=== PATIENT | female | born 1955 | race Caucasian/White ===

== ENCOUNTER → 2018-10-10 | Outpatient (CLI) | payer OTHER ==
[~2018-10-10] MED LIST: GADOBENATE DIMEGLUMINE 1 ML IV ONE
[2018-10-10 09:53] LABS: BLOOD UREA NITROGEN 14 mg/dL (7-26); BUN/CREATININE RATIO 18 (6-25); CREATININE, SERUM 0.79 mg/dL (0.57-1.11); EST GLOMERULAR FILTRATION RATE > 60 ML/MIN (60-)
--- NOTE | 2018-10-10 11:17 | Diagnostic Imaging Report ---
TECHNIQUE: Magnetic resonance imaging of the right hand was performed without and with injected contrast. 10 mL of MultiHance. HISTORY: Pain COMPARISON: None. FINDINGS: Involving the distal phalanx of the small finger a 4 mm hyperintense lesion which causes cortical erosion. Hyperintense on fluid sensitive, isointense to muscle on T1, and shows enhancement. Remainder of the bone marrow and soft tissues are unremarkable. Flexor and extensor tendons are intact. IMPRESSION: 4 mm enhancing nodule involving the distal phalanx of the small finger. May reflect glomus tumor versus epidermoid. Signed by: Dr. Johnny Car M.D. on 10/10/2018 11:14 AM
== END ==
LOC: MRI 08:48
PROVIDERS: ATTEND Plastic Surgery
DX: M79.644 Pain in right finger(s) (principal); R22.31 Localized swelling, mass and lump, right upper limb
CPT/HCPCS: 36415; 73220; 82565; 84520; A9577

== ENCOUNTER → 2018-10-25 | Day surgery (SDC) | payer OTHER ==
[2018-10-19 17:10] LABS: BASOPHILS % 1.1 % (0.0-1.0); EOSINOPHILS # (AUTO) 0.1 (0.0-0.4); EOSINOPHILS % 3.5 % (0.0-6.0); HEMATOCRIT 35.8 % (34.2-44.1); HEMOGLOBIN 11.9 g/dL (12.0-16.0); LYMPHOCYTES # (AUTO) 1.4 (1.0-3.2); MEAN CORPUSCULAR HEMOGLOBIN 28.7 pg (28-32); MEAN CORPUSCULAR HGB CONC 33.2 g/dL (31-35); MEAN CORPUSCULAR VOLUME 86.5 fL (81-99); MONOCYTES # (AUTO) 0.4 (0.2-0.8); MONOCYTES % 11.2 % (4.4-11.3); NEUTROPHILS # (AUTO) 1.7 (2.1-6.9); NEUTROPHILS % 46.2 % (38.7-80.0); PLATELET COUNT 210 x10e3/uL (140-360); RED BLOOD COUNT 4.14 x10e6/uL (3.6-5.1); RED CELL DISTRIBUTION WIDTH 12.9 % (11.7-14.4)
[2018-10-19 17:22] LABS: INR 0.92; PARTIAL THROMBOPLASTIN TIME 32.9 seconds (23.8-35.5); PROTHROMBIN TIME 12.9 seconds (11.9-14.5)
[2018-10-19 17:29] LABS: ALANINE AMINOTRANSFERASE 10 IU/L (0-55); ALBUMIN 4.4 g/dL (3.5-5.0); ALBUMIN/GLOBULIN RATIO 1.6 (0.8-2.0); ALKALINE PHOSPHATASE 37 IU/L (40-150); ANION GAP 12.4 mmol/L (8-16); BLOOD UREA NITROGEN 14 mg/dL (7-26); BUN/CREATININE RATIO 18 (6-25); CALCIUM 9.8 mg/dL (8.4-10.2); CARBON DIOXIDE 24 mmol/L (22-29); CHLORIDE 103 mmol/L (98-107); CREATININE, SERUM 0.78 mg/dL (0.57-1.11); EST GLOMERULAR FILTRATION RATE > 60 ML/MIN (60-); GLUCOSE 81 mg/dL (74-118); POTASSIUM 3.4 mmol/L (3.5-5.1); SODIUM 136 mmol/L (136-145)
[~2018-10-25] MED LIST changes: +BUPIVACAINE HCL 0.5% INJ 30 ML VIAL INJ ONE; +DEXAMETHASONE SOD PHOS INJ 4 MG/ML VIAL ONE; +FENTANYL CITRATE/PF 100MCG/2 ML INJ ONE; -GADOBENATE DIMEGLUMINE 1 ML IV ONE; +KETOROLAC TROMETHAMINE 30 MG/ML VIAL ONE; +LEVOXYL25 MCG PO; +LIDOCAINE HCL 2% LOCAL INJ 5 ML SDV VIAL INJ ONE; +MIDAZOLAM HCL 2 MG/2 ML VIAL ONE; +MUPIROCIN 2% OINT 22 GM TUBE ONE; +ONDANSETRON HCL INJ 2MG/ML 2ML 2 MG/ML VIAL ONE; +PROPOFOL IV EMULSION 10 MG/ML 20 ML VIAL ONE; +SEVOFLURANE INHAL SOLN 250 ML PEN BTL ONE; +[UNRECOGNIZED DRUG - OTHER] PO
--- OUTSIDE RECORDS SUMMARY | 2018-10-25 06:01 | XMS REPORT ---
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
--- OUTSIDE RECORDS SUMMARY | 2018-10-25 06:01 | XMS REPORT ---
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 Problem Hypothyroidism E03.9 Active Problem Age-related osteoporosis without current pathological fracture M81.0 Active Assessment Encounter for immunization Z23 Active Assessment Encounter for screening mammogram for malignant neoplasm of breast Z12.31 Active Problem Chronic hepatitis C without hepatic coma B18.2 Active Assessment Encounter for general adult medical examination without abnormal findings Z00.00 Active Assessment Adult BMI <19 kg/sq m Z68.1 Active Assessment Pneumococcal vaccination declined Z28.21 Active Assessment Influenza vaccination declined Z28.21 Active Medications Medication Code System Code Instructions Start Date End Date Status Dosage Fosamax [facility] 81382702677 70 mg orally once a week Active 1 tab(s) Levoxyl [facility] 70855127741 25 mcg (0.025 mg) orally once a day Active 1 tab(s) Vital Signs Date/Time: Jan 29, 2018 Height 65 in Temperature 97.6 F Pulse 63 /min BMI 17.80 Index Weight 107 lbs Results No Known Results Summary Purpose [employer] Submission
--- OUTSIDE RECORDS SUMMARY | 2018-10-25 06:01 | XMS REPORT | Continuity of Care Document ---
Author Author [employer] Address Unknown Phone Unavailable Care Team Providers Care Wine Master Name Role Phone [employer] Information SEA Unavailable Unavailable Problems Problem Status Onset Date Classification Date Reported Comments Source Chronic hepatitis C without hepatic coma Active Problem 09/13/2018 Valentin Marisa residential current use of therapeutic drug Active Problem 09/13/2018 Valentin Marisa Strabismus Active Problem 09/13/2018 Valentin Marisa Vasculitis Active Problem 09/13/2018 Valentin Marisa Congenital cataract of left eye Active Problem 09/13/2018 Valentin Marisa Hypothyroidism Active Problem 09/13/2018 Valentin Marisa Hypercalcemia Active Problem 09/13/2018 Valentin Marisa Age-related osteoporosis without current pathological fracture Active Problem 09/13/2018 Valentin Marisa Body mass index 19 or less, adult Active Diagnosis 06/11/2017 Valentin Marisa Urine findings abnormal Active Diagnosis 06/11/2017 Valentin Marisa Encounter for screening for other viral diseases Active Diagnosis 02/03/2018 Valentin Marisa Encounter for screening for malignant neoplasm of colon Active Diagnosis 02/03/2018 Valentin Marisa Encounter for immunization Active Diagnosis 02/03/2018 Valentin Marisa Encounter for screening mammogram for malignant neoplasm of breast Active Diagnosis 02/03/2018 Valentin Marisa Encounter for general adult medical examination without abnormal findings Active Diagnosis 02/03/2018 Valentin Marisa Adult BMI <19 kg/sq m Active Diagnosis 02/03/2018 Valentin Marisa Pneumococcal vaccination declined Active Diagnosis 02/03/2018 Valentin Marisa Medications Medication Details Route Status Patient Instructions Ordering Provider Order Date Source Levoxyl 1 tab(s) orally Active 25 mcg (0.025 mg) orally once a day YARIMA Valentin Marisa Fosamax 1 tab(s) orally Active 70 mg orally once a week YARIMA Valentin Marisa Allergies, Adverse Reactions, Alerts Substance Category Reaction Severity Reaction type Status Date Reported Comments Source Morphine Adverse Reaction rash Adverse Reaction Active 01/29/2018 Valentin Marisa Immunizations Results Pathology Reports Diagnostic Reports Consultation Notes Discharge Summaries History and Physicals Vital Signs Vital Sign Value Date Comments Source Height 65 01/29/2018 Valentin Marisa Temperature Oral (F) 97.6 F 01/29/2018 Valentin Marisa Weight 107 01/29/2018 Valentin Marisa Height 65 01/23/2017 Valentin Marisa Temperature Oral (F) 97.6 F 01/23/2017 Valentin Marisa Weight 110 01/23/2017 Valentin Marisa Encounters Procedures Plan of Care Social History Family History Advance Directives Functional Status
--- OUTSIDE RECORDS SUMMARY | 2018-10-25 06:01 | XMS REPORT ---
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
--- OUTSIDE RECORDS SUMMARY | 2018-10-25 06:01 | XMS REPORT ---
Author Author [facility] Address Unknown Phone Unavailable Care Team Providers Care Dictaphone Typist Name Role Phone FELI PARKER Unavailable Unavailable Problems This patient has no known problems. Allergies, Adverse Reactions, Alerts This patient has no known allergies or adverse reactions. Medications This patient has no known medications. Results Test Description Test Time Test Comments Text Results Atomic Results Result Comments MRI HAND RIGHT WOW 2018-10-10 11:10:00 [place] [address] Patient Name: KYLIE NIEVES MR #: [id number] : 1955 Age/Sex: 62/F Req #: [id number] Adm Physician: Ordered by: FELI PARKER MD Report #: [id number] Location: MRI Room/Bed: Procedure: [id number] MRI/MRI HAND RIGHT WOW Exam Date: Exam Time: REPORT STATUS: Signed TECHNIQUE: Magnetic resonance imaging of the right hand was perf ormed without and with injected contrast. 10 mL of MultiHance. HISTORY: Pain COMPARISON: None. FINDINGS: Involving the distal phalanx of the small finger a 4 mm hyperintense lesion which causes cortical erosion. Hyperintense on fluid sensitive, isointense to muscle on T1, and shows enhancement. Remainder of the bone marrow and soft tissues are unremarkable. Flexor and extensor tendons are intact. IMPRESSION: 4 mm enhancing nodule involving the distal phalanx of the small finger. May reflect glomus tumor versus epidermoid. Signed by: Dr. Darrell Mitchell M.D. on 10/10/2018 11:14 AM Dictated By: DARRELL MITCHELL MD [id number] Transcribed By: SANTHOSH on 10/10/18 111 COPY TO: FELI PARKER MD
[2018-10-25] MEDS: CEFAZOLIN SOD 1 GM/NS 50ML 50 ML IV ONE (07:21)
[2018-10-25] MEDS: KETOROLAC TROMETHAMINE 30 MG/ML VIAL ONE (09:32)
[2018-10-25 10:10] VITALS: BP 144/88
--- NOTE | 2018-10-25 16:29 | Operative Report ---
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 POSTOPERATIVE DIAGNOSIS: Glomus tumor of right little finger. PROCEDURE: Radical resection of tumor in soft tissue of finger, less than 3 cm. ANESTHESIA: General. HISTORY: The patient is a 62-year-old [id number] female, who has a glomus tumor that was diagnosed by MRI study. It is located at the base of the eponychial fold of the right little finger. The risks, benefits, and alternatives of treatment were discussed with the patient and she is prepared to undergo the procedure as outlined. PROCEDURE IN DETAIL: The patient was marked preoperatively in the holding area. She was brought to the operating theater and after the induction of adequate general anesthesia, she was prepped and draped in a supine position and a time-out was performed. The procedure was begun by exsanguinating the right upper extremity and inflating the tourniquet to 250 mm of pressure. Using a [place] elevator, the nail plate was avulsed from the underlying nail bed and removed in its entirety. The glomus tumor appears at the base of the right little finger along the ulnar aspect of the nail bed. In order to allow adequate access, an incision was made through the eponychial fold on the ulnar aspect of the fold. The tissues were then reflected back and the entire base of the nail bed was visualized. A longitudinal incision was made directly over the area of the glomus tumor and using sharp dissection, the nail bed was then elevated off the tumor. The tumor was gelatinous in appearance and was able to be excised and then using a small curette, the remaining portions of the tumor are curetted from the surface of the distal phalanx. The area was then irrigated with bacteriostatic saline and inspected and care taken to ensure that no further neoplastic material remained. At this point, the rent in the nail bed was repaired using 6-0 chromic sutures in an interrupted fashion. An artificial nail INRO stent was placed after cutting it to fit the dimensions needed and it was placed beneath the eponychial fold. It was sutured to both the eponychial fold and the distal soft tissue of the distal phalanx. The incision in the eponychial fold was then repaired using a single 6-0 chromic interrupted suture. Bactroban ointment, Xeroform gauze, and a sterile bulky conforming bandage were applied. The tourniquet was deflated. All the fingers pinked up nicely and a sterile bulky conforming bandage was placed and the patient was returned to recovery room in satisfactory condition and discharged with a postoperative instruction sheet as well as a followup appointment. MD SHAWN Nash/NICOLE /[id number]
== END | disposition home or self-care (01) ==
LOC: OR 06:00
PROVIDERS: ATTEND Plastic Surgery
DX: D18.09 Hemangioma of other sites (principal); E03.9 Hypothyroidism, unspecified; Z88.6 Allergy status to analgesic agent; Z01.810 Encounter for preprocedural cardiovascular examination; Z01.812 Encounter for preprocedural laboratory examination; Z86.19 Personal history of other infectious and parasitic diseases
CPT/HCPCS: 26117; 36415; 80053; 85025; 85610; 85730; 88304; 93005; J0690; J1100; J1885; J2001; J2250; J2405; J2704; J3010